=== PATIENT | female | born 1990 | race Hispanic/Latino ===

== ENCOUNTER 2018-07-06 18:47 | Emergency (ER) | payer OTHER ==
[2018-07-06] MEDS ORDERED: KETOROLAC TROMETHAMINE 60 MG/2 ML VIAL ONE (19:14)
[2018-07-06] MEDS ORDERED: ONDANSETRON ODT 4 MG TAB ONE (19:14)
[2018-07-06 20:10] LABS: APPEARANCE,URINE CLOUDY (CLEAR); BILIRUBIN,URINE NEGATIVE (NEGATIVE); COLOR,URINE RED (YELLOW); GLUCOSE, URINE (UA) NEGATIVE (NEGATIVE); KETONES,URINE 40 mg/dL (NEGATIVE); LEUKOCYTE ESTERASE ,URINE SMALL (NEGATIVE); NITRATE,URINE POSITIVE (NEGATIVE); OCCULT BLOOD,URINE LARGE (NEGATIVE); PROTEIN,URINE 100 (NEGATIVE)
[2018-07-06 20:22] LABS: HCG,QUAL RESULT NEGATIVE (NEGATIVE)
[2018-07-06 20:36] LABS: BACTERIA,URINE Few /HPF (None Seen); RBC,URINE Full Field /HPF (0-1); SQUAMOUS EPITHELIAL CELL,UR None Seen /HPF (0-2)
[2018-07-06] MEDS ORDERED: NITROFURANTOIN MONOHYD/M-CRYST 100 MG CAPSULE PO ONE (20:41)
== END 2018-07-06 20:50 | disposition home or self-care (01) ==
LOC: EDH 18:47
DX: J10.1 Influenza due to other identified influenza virus with other respiratory manifestations (principal); N39.0 Urinary tract infection, site not specified; Z98.890 Other specified postprocedural states; Z72.0 Tobacco use
CPT/HCPCS: 81001; 81025; 96372; 99283; J1885